=== PATIENT | male | born 2000 | race Asian ===

== ENCOUNTER 2024-09-05 08:20 | Emergency (ER) | payer MEDICAID ==
[~2024-09-05] VITALS: Ht 177.8 cm; Wt 70.0 kg
[2024-09-05 08:31] VITALS: O2SAT 100
[2024-09-05 08:54] LABS: CLARITY URINE CLEAR (CLEAR); COLOR URINE YELLOW (YELLOW); GLUCOSE URINE NEGATIVE (NEGATIVE); KETONES URINE NEGATIVE (NEGATIVE); LEUKOCYTE ESTERASE URINE TRACE (NEGATIVE); NITRITE URINE NEGATIVE (NEGATIVE); OCCULT BLOOD URINE NEGATIVE (NEGATIVE); PH URINE 7.5 (4.5-8.0); PROTEIN URINE NEGATIVE (NEGATIVE); SPECIFIC GRAVITY URINE 1.008 (1.005-1.030); UROBILINOGEN URINE 0.2 E.U./dL (0.2-1.0)
[2024-09-05] MEDS: IBUPROFEN 600MG TABLET PO ONE (08:59)
[2024-09-05 09:18] LABS: SQUAMOUS EPITHELIAL CELL URINE RARE /lpf (RARE/1+)
[2024-09-05 09:19] LABS: RBC URINE NONE SEEN /hpf (0-2); WBC URINE 0-2 /hpf (0-2)
[2024-09-05 09:20] LABS: BACTERIA URINE NONE SEEN
[2024-09-05] MEDS ORDERED: LEVO-65 MT (10:59)
[2024-09-05] MEDS: CEFTRIAXONE SODIUM 500MG VIAL IM ONE (11:20)
[2024-09-05] MEDS: LIDOCAINE HCL 1% 20ML VIAL INFIL ONE (11:20)
[2024-09-05 11:27] VITALS: BP 122/78; PULSE 88; RESP 18; TEMP 36.8; O2SAT 100
[2024-09-07 04:07] LABS: CHLAMYDIA TRACHOMATIS NAA Negative (Negative); NEISSERIA GONORRHOEAE NAA Negative (Negative)
== END 2024-09-05 11:28 | disposition home or self-care (01) ==
LOC: ER 08:20
DX: N45.3 Epididymo-orchitis (principal)
CPT/HCPCS: 99285; 93976; 87491; 87591; 81003; 76870; 96372; J0696; J3490